=== PATIENT | male | born 1980 | race Two or more races ===

== ENCOUNTER 2023-12-18 17:34 | Emergency (ER) | payer BC ==
[~2023-12-18] VITALS: Ht 170.2 cm; Wt 85.7 kg
[2023-12-18] MEDS ORDERED: KETOROLAC TROMETHAMINE 15 MG/ML VIAL ONE (19:46)
[2023-12-18] MEDS: IV NS 0.9% 1,000 ML BAG IV ONE (20:02)
[2023-12-18] MEDS: KETOROLAC TROMETHAMINE 15 MG/ML VIAL IV ONE (20:02)
[2023-12-18 20:07] LABS: BASOPHILS % (AUTO) 0.8 % (0.0-2.0); EOSINOPHILS # (AUTO) 0.1 K/uL (0.0-0.7); EOSINOPHILS % (AUTO) 2.5 % (0.0-6.0); HEMATOCRIT 44 % (39-51); HEMOGLOBIN 14.9 g/dL (13.5-17.5); MEAN CORPUSCULAR HEMOGLOBIN 30 PG (26.0-33.0); MEAN CORPUSCULAR HGB CONC 34 g/dl (31.0-36.0); MEAN CORPUSCULAR VOLUME 89 fL (80-96); MONOCYTES # (AUTO) 0.4 K/uL (0.1-1.30); MONOCYTES % (AUTO) 7.2 % (2.0-12.0); NEUTROPHILS # (AUTO) 2.7 K/uL (1.8-8.9); NEUTROPHILS % (AUTO) 51.5 % (43.0-81.0); PLATELET COUNT (AUTO) 278 K/uL (150-450); RED BLOOD CELL COUNT(AUTO) 4.99 MIL/uL (4.5-6.0); RED CELL DISTRIBUTION WIDTH 12.3 % (11.5-15.0); WHITE BLOOD COUNT (AUTO) 5.2 K/uL (4.3-11.0)
[2023-12-18 20:16] LABS: CALCIUM, SERUM 8.8 mg/dL (8.5-10.1); CREATININE 1.2 mg/dL (0.6-1.3); POTASSIUM 4.5 mmol/L (3.5-5.1)
[2023-12-18] MEDS: IV LR 1000 ML 1,000 ML IV ONE (20:32)
[2023-12-18] MEDS ORDERED: METF-440 PO (20:33)
[2023-12-18] MEDS ORDERED: INSULIN REGULAR, HUMAN 100 UNIT/ML 10 ML VIAL ONE (20:40)
[2023-12-18] MEDS: INSULIN REGULAR, HUMAN 100 UNIT/ML 10 ML VIAL SQ STA (20:47)
[2023-12-18 21:27] VITALS: BP 123/74; TEMP 98.1; O2SAT 99
== END 2023-12-18 21:27 | disposition home or self-care (01) ==
LOC: ER 17:47
DX: G44.209 Tension-type headache, unspecified, not intractable (principal); R42 Dizziness and giddiness; E11.65 Type 2 diabetes mellitus with hyperglycemia; Z60.2 Problems related to living alone
CPT/HCPCS: 99284; 96374; 96361; 85025; 80048; 36415; 82962; 96372; J1815; J7120 ×2; J7030; J1885